=== PATIENT | female | born 1990 | race Caucasian/White ===

== ENCOUNTER 2017-05-21 15:31 | Emergency (ER) | payer BC ==
[2017-05-21 15:46] VITALS: BP 129/74
[2017-05-21] MEDS ORDERED: predniSONE 10 MG TABLET PO ONE (16:00)
[2017-05-21] MEDS ORDERED: diphenhydrAMINE HCL 25 MG CAPSULE PO ONE (16:00)
[2017-05-21] MEDS ORDERED: FAMOTIDINE 20 MG TABLET. PO ONE (16:00)
[2017-05-21] MEDS ORDERED: DIPH25CA58 PO (16:03)
[2017-05-21] MEDS ORDERED: CETI10TA22 PO (16:03)
[2017-05-21] MEDS ORDERED: FAMO20TA5 PO (16:03)
[2017-05-21] MEDS ORDERED: PRED50TA PO (16:03)
--- NOTE | 2017-05-21 16:04 | PHYS DOC ---
Adult General Chief Complaint Chief Complaint: SKIN RASH/ABSCESS HPI HPI Patient is a 27 year old female with history of anxiety who presents today complaining of a rash that began yesterday. Patient states this afternoon she took a nap, woke up and realized the rash had spread to her chest, she states she got anxious. She states she felt sharp pain in her chest. She states she called 911. Patient denies any new contacts to cause the rash Review of Systems Review of Systems Constitutional: Denies fever or chills [] Eyes: Denies change in visual acuity, redness, or eye pain [] HENT: Denies nasal congestion or sore throat [] Respiratory: Denies cough or shortness of breath [] Cardiovascular: chest pain. No additional information not addressed in HPI [] GI: Denies abdominal pain, nausea, vomiting, bloody stools or diarrhea [] : Denies dysuria or hematuria [] Musculoskeletal: Denies back pain or joint pain [] Integument: rash Neurologic: Denies headache, focal weakness or sensory changes [] Psych:reports anxiety All other systems were reviewed and found to be within normal limits, except as documented in this note. Current Medications Current Medications Current Medications Medications (Trade) Dose Ordered Sig/Jelani Start Time Stop Time Status Last Admin Dose Admin Diphenhydramine HCl (Benadryl) 25 mg 1X ONCE 05/21/17 16:00 05/21/17 16:01 DC 05/21/17 15:56 25 MG Famotidine (Pepcid) 20 mg 1X ONCE 05/21/17 16:00 05/21/17 16:01 DC 05/21/17 15:56 20 MG Prednisone (Prednisone) 50 mg 1X ONCE 05/21/17 16:00 05/21/17 16:01 DC 05/21/17 15:56 50 MG Allergies Allergies Allergies Coded Allergies Type Severity Reaction Last Updated Verified morphine Allergy Intermediate RASH 05/21/17 Yes Physical Exam Physical Exam Constitutional: Well developed, well nourished, no acute distress, non-toxic appearance. [] HENT: Normocephalic, atraumatic, bilateral external ears normal, oropharynx moist, no oral exudates, nose normal. [] Eyes: PERRLA, EOMI, conjunctiva normal, no discharge. [] Neck: Normal range of motion, no tenderness, supple, no stridor. [] Cardiovascular:Heart rate regular rhythm, no murmur [] Lungs & Thorax: Bilateral breath sounds clear to auscultation [] Abdomen: Bowel sounds normal, soft, no tenderness, no masses, no pulsatile masses. [] Skin: Warm, dry, pimples noted on the face. Mild amount of erythematous papular rash on the face and trace amount of the neck and chest. Back: No tenderness, no CVA tenderness. [] Extremities: No tenderness, no cyanosis, no clubbing, ROM intact, no edema. [] Neurologic: Alert and oriented X 3, normal motor function, normal sensory function, no focal deficits noted. [] Psychologic: Affect normal, judgement normal, mood normal. [] Current Patient Data Vital Signs Vital Signs Date Time Temp Pulse Resp B/P (MAP) Pulse Ox O2 Delivery O2 Flow Rate FiO2 05/21/17 15:46 98.0 98 20 98 Room Air 98.0 EKG EKG [] Radiology/Procedures Radiology/Procedures [] Course & Med Decision Making Course & Med Decision Making Pertinent Labs and Imaging studies reviewed. (See chart for details) Patient is in the ED with contact dermatitis rash. She is also complaining of anxiety/chest pain that she noted . She does have her own anxiety medicines. I requested her to take her anxiety medicine. Be discharged with prednisone and Benadryl and Pepcid. Instructed to follow-up with the settlement agent, [facility], as well as PCP from the list provided. Dragon Disclaimer Dragon Disclaimer This electronic medical record was generated, in whole or in part, using a voice recognition dictation system. Departure Departure Impression: Primary Impression: Contact dermatitis Additional Impression: Anxiety Disposition: 01 HOME, SELF-CARE Condition: STABLE Referrals: RADHA HERNANDEZ MD follow up in 1-2 weeks Patient Instructions: Anxiety and Panic Attacks, Contact Dermatitis Additional Instructions: You were seen for contact dermatitis rash, and anxiety. Please take Prednisone, Famotidine and Benadryl as ordered. Please take your anxiety medicines as ordered. Follow up with a settlement agent provided in 1 week we provided you one. Follow up with a primary care doctor from the list provided as well as [facility] for anxiety or your own doctor. Scripts Prednisone (PREDNISONE) 50 Mg Tablet 1 TAB PO DAILY, #4 TAB Prov: MUTDANTE NUNES APRN 05/21/17 Cetirizine Hcl (ZYRTEC) 10 Mg Tablet 1 TAB PO DAILY, #30 TAB 2 Refills Prov: DANTE CRUZ APRN 05/21/17 Diphenhydramine Hcl (BENADRYL) 25 Mg Capsule 1 CAP PO QHS, #30 CAP 1 Refill Prov: DANTE CRUZ APRN 05/21/17 Famotidine (FAMOTIDINE) 20 Mg Tablet 20 MG PO DAILY, #14 TAB Prov: DANTE CRUZ APRN 05/21/17 Problem Qualifiers Primary Impression: Contact dermatitis Contact dermatitis type: unspecified Contact dermatitis trigger: unspecified trigger Qualified Codes: L25.9 - Unspecified contact dermatitis, unspecified cause DANTE CRUZ APRN May 21, 2017 16:04
== END 2017-05-21 16:10 | disposition home or self-care (01) ==
LOC: ER 15:31
DX: L25.9 Unspecified contact dermatitis, unspecified cause (principal); F41.9 Anxiety disorder, unspecified; R07.89 Other chest pain; Z88.5 Allergy status to narcotic agent
CPT/HCPCS: 99284; J7512; Q0163